=== PATIENT | female | born 1980 | race Two or more races ===

== ENCOUNTER 2017-07-26 03:04 | Emergency (ER) | payer SELFPAY ==
[~2017-07-26] VITALS: Ht 162.6 cm; Wt 63.5 kg
[2017-07-26] MEDS ORDERED: Sodium Chloride 500ML 500 ML IV ONE (03:13)
[2017-07-26] MEDS ORDERED: LORazepam Inj 2mg/ml 1ml IV ONE ×2 (03:15→09:00)
[2017-07-26] MEDS ORDERED: LAMICTAL150 MG ORAL (03:24)
[2017-07-26] MEDS ORDERED: DILANTIN100 MG ORAL (03:24)
[2017-07-26] MEDS ORDERED: TRILEPTAL600 MG PO (03:24)
[2017-07-26] MEDS ORDERED: ZONEGRAN100 MG ORAL (03:24)
[2017-07-26] MEDS ORDERED: FOLIC ACID1 MG ORAL (03:24)
[2017-07-26 04:12] VITALS: BP 110/74
--- NOTE | 2017-07-26 05:31 | Emergency Room Report ---
History of Present Illness General Chief Complaint: Seizure Source: Medical Record, EMS Present Illness HPI 37-year-old female presents ED status post seizure. Had a seizure tonight witnessed by family. In bed. No head trauma. Family called 911. Patient has history of seizures and takes multiple seizure medications. Patient is well- known to [facility] [place]. Upon arrival patient is post ictal and confused. Unable to provide any additional history at this time. No other aggravating relieving factors. Denies any other associated symptoms Allergies: Coded Allergies: No Known Allergies (Unverified , 07/26/17) Patient History Past Medical History: seizures Pertinent Family History: none Social History: Denies: smoking, alcohol use, drug use Last Menstrual Period: ukn Now: No Immunizations: UTD Reviewed Nursing Documentation: PMH: Agreed; PSxH: Agreed Nursing Documentation-PMH Past Medical History: No History, Except For Hx Cardiac Problems: Yes Hx Pacemaker: Yes Hx Neurological Problems: Yes Hx Seizures: Yes Review of Systems All Other Systems: limited Physical Exam Vital Signs Date Time Temp Pulse Resp B/P (MAP) Pulse Ox O2 Delivery O2 Flow Rate FiO2 07/26/17 03:01 97.8 108 20 111/61 98 Room Air 97.9 Sp02 EP Interpretation: reviewed, normal General Appearance: Postictal Head: normocephalic Eyes: bilateral eye normal inspection, bilateral eye PERRL ENT: normal ENT inspection Neck: normal inspection Respiratory: chest non-tender, lungs clear, normal breath sounds, speaking full sentences Cardiovascular #1: regular rate, rhythm, no edema Gastrointestinal: normal bowel sounds, non tender, soft, non-distended, no guarding, no rebound Rectal: deferred Genitourinary: no CVA tenderness Musculoskeletal: normal inspection Neurologic: other - disoriented Psychiatric: other - disoriented Skin: normal inspection Lymphatic: normal inspection Medical Decision Making Diagnostic Impression: Primary Impression: Seizure disorder Additional Impression: Subtherapeutic serum dilantin level ER Course Hospital Course 37-year-old F presents to ED status post seizure. h/o seizures Differential diagnosis includes- breakthrough seizure, alcohol abuse, noncompliance with medication Clinical course Patient placed on stretcher. Initial history and physical I ordered labs, IV fluids patient initially combative but confused. Patient given IM Ativan. Once patient is more calm and cooperative IV access obtained Labs-electrolytes okay, no leukocytosis, hemoglobin/hematocrit stable. dilantin level markedly subtherapeutic given loading dose of dilantin here. Patient allowed to rest is now awake alert oriented x3. ambulating without difficulty. Family is at bedside and can take patient home. Patient has all her prescriptions Diagnosis - seizure disorder, subtherapeutic dilantin level stable and discharged to home. Followup with PMD. Return to ED if symptoms recur or worsen Labs Test 07/26/17 05:30 07/26/17 06:30 White Blood Count 9.1 K/UL (4.8-10.8) Red Blood Count 4.47 M/UL (4.20-5.40) Hemoglobin 9.5 G/DL (12.0-16.0) Hematocrit 31.7 % (37.0-47.0) Mean Corpuscular Volume 71 FL (80-99) Mean Corpuscular Hemoglobin 21.2 PG (27.0-31.0) Mean Corpuscular Hemoglobin Concent 29.9 G/DL (32.0-36.0) Red Cell Distribution Width 15.7 % (11.6-14.8) Platelet Count 484 K/UL (150-450) Mean Platelet Volume 4.6 FL (6.5-10.1) Neutrophils (%) (Auto) % (45.0-75.0) Lymphocytes (%) (Auto) % (20.0-45.0) Monocytes (%) (Auto) % (1.0-10.0) Eosinophils (%) (Auto) % (0.0-3.0) Basophils (%) (Auto) % (0.0-2.0) Differential Total Cells Counted 100 Neutrophils % (Manual) 89 % (45-75) Lymphocytes % (Manual) 6 % (20-45) Monocytes % (Manual) 4 % (1-10) Eosinophils % (Manual) 0 % (0-3) Basophils % (Manual) 1 % (0-2) Band Neutrophils 0 % (0-8) Platelet Estimate Adequate Platelet Morphology Normal Sodium Level 133 MMOL/L (136-145) Potassium Level 3.5 MMOL/L (3.5-5.1) Chloride Level 99 MMOL/L (98-107) Carbon Dioxide Level 21 MMOL/L (21-32) Anion Gap 13 mmol/L (5-15) Blood Urea Nitrogen 7 mg/dL (7-18) Creatinine 0.9 MG/DL (0.55-1.30) Estimat Glomerular Filtration Rate > 60 mL/min (>60) Glucose Level 123 MG/DL (74-106) Calcium Level 8.7 MG/DL (8.5-10.1) Total Bilirubin 0.2 MG/DL (0.2-1.0) Aspartate Amino Transf (AST/SGOT) 20 U/L (15-37) Alanine Aminotransferase (ALT/SGPT) 24 U/L (12-78) Alkaline Phosphatase 173 U/L (46-116) Total Protein 8.5 G/DL (6.4-8.2) Albumin 3.8 G/DL (3.4-5.0) Globulin 4.7 g/dL Albumin/Globulin Ratio 0.8 (1.0-2.7) Acetaminophen Level < 2 MCG/ML (10-30) Phenytoin (Dilantin) Level 2.8 ug/mL (10-20) Serum Alcohol < 3 mg/dL Urine HCG, Qualitative Negative (NEGATIVE) Urine Opiates Screen Negative (NEGATIVE) Urine Barbiturates Screen Negative (NEGATIVE) Phencyclidine (PCP) Screen Negative (NEGATIVE) Urine Amphetamines Screen Negative (NEGATIVE) Urine Benzodiazepines Screen Negative (NEGATIVE) Urine Cocaine Screen Negative (NEGATIVE) Urine Marijuana (THC) Screen Negative (NEGATIVE) Last Vital Signs Date Time Temp Pulse Resp B/P (MAP) Pulse Ox O2 Delivery O2 Flow Rate FiO2 07/26/17 04:12 97.9 102 20 110/74 100 Room Air 97.9 Status: improved Disposition: HOME, SELF-CARE Condition: Stable Referrals: NOT CHOSEN IPA/,REFERRING (PCP) Estevan Baker MD Jul 26, 2017 05:31
[2017-07-26 05:36] VITALS: BP 114/82
[2017-07-26 06:08] LABS: BLOOD UREA NITROGEN 7 mg/dL (7-18)
[2017-07-26 06:20] LABS: ALBUMIN 3.8 G/DL (3.4-5.0); ALBUMIN/GLOBULIN RATIO 0.8 (1.0-2.7)
[2017-07-26 06:21] LABS: ALANINE AMINOTRANSFERASE 24 U/L (12-78); ALKALINE PHOSPHATASE 173 U/L (46-116); ASPARTATE AMINO TRANSFERASE 20 U/L (15-37); BILIRUBIN,TOTAL 0.2 MG/DL (0.2-1.0); CALCIUM 8.7 MG/DL (8.5-10.1); CREATININE 0.9 MG/DL (0.55-1.30)
[2017-07-26 06:43] LABS: SODIUM 133 MMOL/L (136-145)
[2017-07-26 06:44] LABS: ANION GAP 13 mmol/L (5-15); CARBON DIOXIDE 21 MMOL/L (21-32); CHLORIDE 99 MMOL/L (98-107); POTASSIUM 3.5 MMOL/L (3.5-5.1)
[2017-07-26 07:01] VITALS: BP 112/74
[2017-07-26] MEDS ORDERED: Phenytoin 500 MG in NS 110 ML IVPB ONE (07:15)
[2017-07-26 07:35] LABS: HEMATOCRIT 31.7 % (37.0-47.0); HEMOGLOBIN 9.5 G/DL (12.0-16.0); MEAN CORPUSCULAR VOLUME 71 FL (80-99); PLATELET COUNT 484 K/UL (150-450); RED BLOOD COUNT 4.47 M/UL (4.20-5.40); RED CELL DISTRIBUTION WIDTH 15.7 % (11.6-14.8); WHITE BLOOD COUNT 9.1 K/UL (4.8-10.8)
[2017-07-26 09:12] VITALS: BP 98/69
[2017-07-26 09:48] VITALS: BP 98/69
== END 2017-07-26 09:48 | disposition home or self-care (01) ==
LOC: EDBD 03:04 → EMR 04:10
DX: G40.909 Epilepsy, unspecified, not intractable, without status epilepticus (principal); Z95.0 Presence of cardiac pacemaker; Z79.899 Other long term (current) drug therapy
CPT/HCPCS: 36415; 80053; 80185; 80307; 81025; 85007; 85025; 96360; 96366; 96374; 99284; G0480; J1165; J7040; 80329

== ENCOUNTER 2018-06-06 14:01 | Emergency (ER) | payer MEDICAID ==
[~2018-06-06] VITALS: Ht 167.6 cm; Wt 76.2 kg
[~2018-06-06 14:01] MED LIST: DILANTIN100 MG ORAL; FOLIC ACID1 MG ORAL; IBUPROFEN800 MG ORAL; LAMICTAL150 MG ORAL; NITROFURANTOIN100 M2 ORAL; TRILEPTAL600 MG PO; ZONEGRAN100 MG ORAL
[2018-06-06] MEDS ORDERED: ONFI10 MG PO (14:16)
--- NOTE | 2018-06-06 14:19 | NUR ---
ED Nurse Note: Pt came in from home initially due to laceration on R wrist, pt accidentally cut herself. She now complaining of feeling uncomfortable, heart racing, dizzy once in the ER. Pt has a pacemaker. Wound clean, no active bleeding. Will cont to monitor.
[2018-06-06] MEDS ORDERED: CLOTRIMAZOLE VA21 GM VAGIN (14:20)
[2018-06-06] MEDS ORDERED: DOCUSATE SODIU100 MG ORAL (14:20)
[2018-06-06 14:30] VITALS: BP 114/65
[2018-06-06] MEDS ORDERED: OXCARBAZEPINE600 MG PO (15:06)
[2018-06-06] MEDS ORDERED: FOLIC ACID1 M1 PO (15:06)
[2018-06-06] MEDS ORDERED: FERROUS SULFAT325 M2 ORAL (15:06)
[2018-06-06] MEDS ORDERED: MECLIZINE HCL25 M1 ORAL (15:06)
[2018-06-06] MEDS ORDERED: IBUPROFEN600 MG ORAL (15:06)
[2018-06-06] MEDS ORDERED: ZONISAMIDE100 MG ORAL (15:06)
[2018-06-06] MEDS ORDERED: LAMICTAL150 MG ORAL (15:06)
--- NOTE | 2018-06-06 15:15 | NUR ---
ED Nurse Note: received report from THADDEUS Rowell. patient at no distress at this time, IV patent, urine sent down
[2018-06-06 15:23] LABS: BASOPHILS % (AUTO) 0.9 % (0.0-2.0); EOSINOPHILS % (AUTO) 3.2 % (0.0-3.0); HEMATOCRIT 38.4 % (37.0-47.0); HEMOGLOBIN 13.2 G/DL (12.0-16.0); MEAN CORPUSCULAR VOLUME 96 FL (80-99); MONOCYTES % (AUTO) 7.2 % (1.0-10.0); NEUTROPHILS % (AUTO) 66.7 % (45.0-75.0); PLATELET COUNT 280 K/UL (150-450); RED CELL DISTRIBUTION WIDTH 11.2 % (11.6-14.8); WHITE BLOOD COUNT 8.2 K/UL (4.8-10.8)
[2018-06-06 15:33] LABS: ANION GAP 11 mmol/L (5-15); BLOOD UREA NITROGEN 12 mg/dL (7-18); CALCIUM 8.6 MG/DL (8.5-10.1); CARBON DIOXIDE 22 MMOL/L (21-32); CHLORIDE 104 MMOL/L (98-107); CREATININE 0.8 MG/DL (0.55-1.30); POTASSIUM 5.6 MMOL/L (3.5-5.1); SODIUM 137 MMOL/L (136-145)
--- NOTE | 2018-06-06 15:44 | Emergency Room Report ---
History of Present Illness General Chief Complaint: Upper Extremity Injury Source: Patient Present Illness HPI 38-year-old female with history of seizure and in-place pacemaker here complaining of pain and pressure in the right hand after cutting it with a knife yesterday. Reports she was working in her garden and she accidentally cut her left palm with a knife. Planes of a lot of bleeding and pain radiating to the left arm. Patient lives with her mother and her mother gave her Tylenol complains of minimal pain at site of infection right now. denies tingling and numbness. Rates the pain 5 out of 10 upon palpation. She also reports that she is having palpitations ever since this incident she has a pacemaker placed in and have her last manager marketing communications with a 2 days ago which she reports everything was okay. Patient also met with her neurologist 2 days ago and was told that her forgetfulness and fatigue is secondary to her seizure medication. Denies S OB, dizziness, headache, fever chills, abdominal pain nausea vomiting. Denies smoking and drug use ROS: denies: fatigue, low energy, confusion denies: nausea, vomiting, abdominal pain, urinary frequency, dysuria denies: sob, chest pain, dizziness, blurred vision, headache denies: muscle pain, tingling/numbness denies: sore throat, rhinorrea, fever, chills, ear pain denies: anxiety, depresion, SI, HI, drug use Allergies: Coded Allergies: No Known Allergies (Unverified , 06/06/18) Patient History Past Medical History: see triage record Past Surgical History: unable to obtain Pertinent Family History: none Now: No - On her period at this time Reviewed Nursing Documentation: PMH: Agreed; PSxH: Agreed Nursing Documentation-PMH Past Medical History: No History, Except For Hx Seizures: Yes Review of Systems All Other Systems: negative except mentioned in HPI Physical Exam Vital Signs Date Time Temp Pulse Resp B/P (MAP) Pulse Ox O2 Delivery O2 Flow Rate FiO2 06/06/18 14:07 98.8 79 16 114/65 99 Room Air Sp02 EP Interpretation: reviewed, normal General Appearance: normal inspection, well appearing, no apparent distress, alert, GCS 15 Head: normocephalic, atraumatic Eyes: bilateral eye normal inspection, bilateral eye PERRL ENT: normal ENT inspection, normal pharynx Neck: normal inspection, full range of motion, supple Respiratory: normal inspection, lungs clear, normal breath sounds Cardiovascular #1: normal inspection, normal peripheral pulses, regular rate, rhythm, no edema Gastrointestinal: normal inspection, non tender, soft Genitourinary: no CVA tenderness Musculoskeletal: back normal, digits/nails normal, gait/station normal, other - puncture wound left hand Neurologic: normal inspection, alert, oriented x3, responsive Psychiatric: normal inspection, judgement/insight normal, memory normal Skin: warm/dry, well hydrated, other - puncture wound left hand Lymphatic: normal inspection, no adenopathy Medical Decision Making PA Attestation All my diagnosis and treatment plans were reviewed ad discussed with my supervising physician Dr. Newman Diagnostic Impression: Primary Impression: Puncture wound, hand Additional Impression: Heart palpitations ER Course 38-year-old female with history of seizure and in-place pacemaker here complaining of pain and pressure in the right hand after cutting it with a knife yesterday. Reports she was working in her garden and she accidentally cut her left palm with a knife. Planes of a lot of bleeding and pain radiating to the left arm. Patient lives with her mother and her mother gave her Tylenol complains of minimal pain at site of infection right now. denies tingling and numbness. Rates the pain 5 out of 10 upon palpation. She also reports that she is having palpitations ever since this incident she has a pacemaker placed in and have her last manager marketing communications with a 2 days ago which she reports everything was okay. Patient also met with her neurologist 2 days ago and was told that her forgetfulness and fatigue is secondary to her seizure medication. Denies S OB, dizziness, headache, fever chills, abdominal pain nausea vomiting. Denies smoking and drug use ROS: denies: fatigue, low energy, confusion denies: nausea, vomiting, abdominal pain, urinary frequency, dysuria denies: sob, chest pain, dizziness, blurred vision, headache denies: muscle pain, tingling/numbness denies: sore throat, rhinorrea, fever, chills, ear pain denies: anxiety, depresion, SI, HI, drug use Ddx considered but are not limited to: [place], Angina, Anxiety, sepsis, puncture wound infected, cellulitis Vital signs: are WNL, pt. is afebrile H&PE are most consistent with: infected puncture wound, palpitation secondary to distress ORDERS: EKG, Chest XR, cardiac labs(troponin, CBC, CMP, ua, tox screen, left hand xray, cardiac enzymes) NS 500 bolus, keflex ED INTERVENTIONS: wound clean and NS bolus DISCHARGE: At this time pt. is stable for d/c to home. Will provide printed patient care instructions, and any necessary prescriptions. Care plan and follow up instructions have been discussed with the patient prior to discharge. follow up with primary Dr for wound check EKG Diagnostic Results Rate: normal Rhythm: NSR ST Segments: no acute changes Chest X-Ray Diagnostic Results Chest X-Ray Diagnostic Results : Chest X-Ray Ordered: Yes # of Views/Limited/Complete: 1 View Indication: Chest Pain EP Interpretation: Yes PA Xray: Interpretation reviewed, by supervising MD, and agrees with findings. Interpretation: no consolidation, no effusion, no pneumothorax, no acute cardiopulmonary disease Impression: No acute disease Electronically Signed by: maday duran PA-C Other X-Ray Diagnostic Results Other X-Ray Diagnostic Results : X-Ray ordered: left hand Indication: Swelling EP Interpretation: Yes PA Xray: Interpretation reviewed, by supervising MD, and agrees with findings. Interpretation: no dislocation, no soft tissue swelling, no fractures, nonspecific bowel gas Impression: No acute disease Electronically Signed by: maday duran PA-C Last Vital Signs Date Time Temp Pulse Resp B/P (MAP) Pulse Ox O2 Delivery O2 Flow Rate FiO2 06/06/18 14:30 98.8 78 16 114/65 100 Room Air Disposition: HOME, SELF-CARE Condition: Stable Scripts Cephalexin* (KEFLEX*) 500 Mg Capsule 500 MG ORAL EVERY 6 HOURS for 7 Days, #28 CAP Prov: Maday Mendoza 06/06/18 Cephalexin* (KEFLEX*) 500 Mg Capsule 500 MG ORAL EVERY 12 HOURS, #14 CAP 0 Refills Prov: Maday Mendoza 06/06/18 Referrals: NOT CHOSEN IPA/,REFERRING (PCP) Patient Instructions: Palpitations, [id number], Puncture Wound, [id number] Additional Instructions: With a primary care provider, manager marketing communications and neurologist regarding your capitation's as well as fatigue if fever chills return to the emergency room no sign of sepsis noted and all blood work is negative take antibiotics as directed follow with a primary care provider in 2 days for wound check Maday Mendoza Jun 06, 2018 15:44
[2018-06-06 15:46] LABS: APPEARANCE,URINE CLOUDY; BILIRUBIN, URINE NEGATIVE (NEGATIVE); GLUCOSE, URINE (UA) NEGATIVE (NEGATIVE); KETONES,URINE NEGATIVE (NEGATIVE); LEUKOCYTE ESTERASE ,URINE 2+ (NEGATIVE); NITRITE,URINE NEGATIVE (NEGATIVE); PH,URINE 6.5 (4.5-8.0); PROTEIN,URINE 2+ (NEGATIVE); UROBILINOGEN,URINE NORMAL MG/DL (0.0-1.0)
[2018-06-06 15:47] LABS: ALANINE AMINOTRANSFERASE 38 U/L (12-78); ALBUMIN 3.4 G/DL (3.4-5.0); ALBUMIN/GLOBULIN RATIO 0.8 (1.0-2.7); ALKALINE PHOSPHATASE 137 U/L (46-116); ASPARTATE AMINO TRANSFERASE 31 U/L (15-37); BILIRUBIN,TOTAL 0.2 MG/DL (0.2-1.0); CKMB 2.2 NG/ML (0.0-3.6); CREATINE KINASE 236 U/L (26-308)
[2018-06-06 15:52] LABS: COLOR,URINE ORANGE
[2018-06-06] MEDS ORDERED: CEPHALEXIN500 MG ORAL ×2 (16:55)
[2018-06-06] MEDS ORDERED: Bacitracin Oint UD TOPIC ONE ×2 (17:02→17:15)
[2018-06-06 17:20] VITALS: BP 114/65
--- NOTE | 2018-06-06 17:20 | NUR ---
ER DISCHARGE NOTE: Patient is cleared to be discharged per ERMD, pt is aox4, on room air, with stable vital signs. pt was given dc and prescription instructions, pt was able to verbalize understanding, pt id band and iv site removed without complications. pt is able to ambulate with steady gait. pt took all belongings.
--- NOTE | 2018-06-07 12:21 | Diagnostic Imaging Report ---
Indication: Chest pain Technique: One view of the chest Comparison: none Findings: Power pack is seen in the left chest wall. Lungs and pleural spaces are clear. The heart size is normal Impression: No acute process
--- NOTE | 2018-06-07 12:22 | Diagnostic Imaging Report ---
Indication: Right hand pain Technique: 3 views right hand Comparison: none Findings: No acute fractures. No dislocations. The joint spaces are preserved Impression: Negative
== END 2018-06-06 17:20 | disposition home or self-care (01) ==
LOC: EMR 15:17 → MERGE 15:17 → EMR 17:20
DX: S61.432A Puncture wound without foreign body of left hand, initial encounter (principal); R00.2 Palpitations; G40.909 Epilepsy, unspecified, not intractable, without status epilepticus; Z95.0 Presence of cardiac pacemaker; W26.0XXA Contact with knife, initial encounter; Y93.H2 Activity, gardening and landscaping; Y92.9 Unspecified place or not applicable
CPT/HCPCS: 36415; 71045; 80053; 80307; 81003; 81025; 82550; 82553; 83605; 84484; 85025; 93005; 99284